=== PATIENT | female | born 1950 | race Hispanic/Latino ===

== ENCOUNTER 2024-02-08 11:16 | Emergency (ER) | payer OTHER, SELFPAY ==
--- NOTE | 2024-02-08 11:45 | ED.GENMED ---
ED Provider Triage
<Frank King PA-C - Last Filed: 02/08/24 11:47>
-
Patient seen by provider in Triage?: Seen in Triage
73 yo female presents due to intractable N/V x 3 days. Increasing fatigue. No fevers. Denies abd pain or diarrhea. No ill contacts. No prior abd surgeries.
VSS, afebrile. Looks well, non toxic. AOx 3
Check CBC, CMP, lipase
History of Present Illness
<Frank King PA-C - Last Filed: 02/08/24 11:47>
General
Chief Complaint: Abdominal Symptoms
Time Seen by Provider: 02/08/24 14:45
<Shanna Goldberg PA-C - Last Filed: 02/08/24 22:30>
General
Source: patient
Exam Limitations: none
Nursing documentation reviewed up to this point in time: agreed with
History of Present Illness
History of Present Illness:
pt is a 73 y/o F with h/o HTN
started vomiting on 02/04 and has had episodes of nausea/vomiting with oral intake since; she thinks she has vomited 6 or 7 times
she feels some pain in her LLQ
nausea occurs with trying to drink something
she has a headache
no fever, abdominal swelling/distension, vomiting blood, diarrhea, consptiaiotn
her vomit is now yellow
she does not drink alcohol
no previous abdominal surgeries
no other sick contacts
Past History
<Shanna Goldberg PA-C - Last Filed: 02/08/24 22:30>
Past History
ED Past Medical History: HTN
ED Past Surgical History: None
Social History
Tobacco: Non-smoker
Alcohol: None
Drug: None
Personal:
Living: with family
Review of Systems
<Shanna Goldberg PA-C - Last Filed: 02/08/24 22:30>
Review of Systems
Allergies reviewed?: Yes
All Other Systems: Not applicable
Phy Exam
<Shanna Goldberg PA-C - Last Filed: 02/08/24 22:30>
Physical Exam
Physical Exam:
GENERAL: Alert , in no apparent distress
EYE: pupils equal and reactive
NECK: Supple
ENT: o/p clr, mmm.
CARDIAC: Regular rate and rhythm .
LUNGS: Clear breath sounds bilaterally, no acute respiratory distress, no wheezes/rales/rhonchi
ABDOMEN: Soft, LLQ tenderness, no r/g, no cvat, normal bowel sounds
NEUROLOGICAL: Alert and oriented, no focal neuro deficits
SKIN: Warm and dry, skin intact.
MUSCULOSKELETAL: No edema, well perfused. neg nida's sign
PSYCH: Normal and appropriate interaction.
Course
<Frank King PA-C - Last Filed: 02/08/24 11:47>
Orders/Labs/Results
Orders:
Orders
02/08/24 11:58
Complete Blood Count/With Diff Urgent
Comprehensive Metabolic Panel Urgent
Lipase Urgent
02/08/24 15:13
0.9% Sodium Chloride 1000 ml [Nss] 1,000 ml IV BOLUS
Diphenhydramine [Benadryl] 25 mg IV NOW STA
Metoclopramide [Reglan] 10 mg IV NOW STA
Abnormal Lab Results
02/08/24
11:58
MCH 33.2 H pg
(27.0-31.0)
BUN 19 H mg/dl
(7-17)
Glucose 136 H mg/dl
(70-99)
02/08/24 11:58
02/08/24 11:58
Vital Signs
Initial and Last Documented VS:
Initial Vital Signs
Temp Pulse Resp BP Pulse Ox
36.8 C 69 20 162/79 98
02/08/24 11:46 02/08/24 11:46 02/08/24 11:46 02/08/24 11:46 02/08/24 11:46
Last Documented Vital Signs
Temp Pulse Resp BP Pulse Ox
36.7 C 61 18 124/50 98
02/08/24 13:18 02/08/24 16:44 02/08/24 16:44 02/08/24 16:44 02/08/24 16:44
<Shanna Goldberg PA-C - Last Filed: 02/08/24 22:30>
Orders/Labs/Results
Orders:
Orders
02/08/24 11:58
Complete Blood Count/With Diff Urgent
Comprehensive Metabolic Panel Urgent
Lipase Urgent
02/08/24 15:13
0.9% Sodium Chloride 1000 ml [Nss] 1,000 ml IV BOLUS
Diphenhydramine [Benadryl] 25 mg IV NOW STA
Metoclopramide [Reglan] 10 mg IV NOW STA
Abnormal Lab Results
02/08/24
11:58
MCH 33.2 H pg
(27.0-31.0)
BUN 19 H mg/dl
(7-17)
Glucose 136 H mg/dl
(70-99)
02/08/24 11:58
02/08/24 11:58
Vital Signs
Initial and Last Documented VS:
Initial Vital Signs
Temp Pulse Resp BP Pulse Ox
36.8 C 69 20 162/79 98
02/08/24 11:46 02/08/24 11:46 02/08/24 11:46 02/08/24 11:46 02/08/24 11:46
Last Documented Vital Signs
Temp Pulse Resp BP Pulse Ox
36.7 C 61 18 124/50 98
02/08/24 13:18 02/08/24 16:44 02/08/24 16:44 02/08/24 16:44 02/08/24 16:44
<Shanna Goldberg PA-C - Last Filed: 02/08/24 22:30>
MDM/Problems Addressed
Differential Diagnosis Includes:
gastritis, enteritis, viral syndrome, obstruction, choleltihaisis
MDM/Problems Addressed:
73 y/o F
3 days of nauesa/vomiting
some bilious emesis
minimal pain lower abd
no fever/chills/cp/sob
she has a headache
did keep some liquids down this morning
no previous surgeries
one xam nontoixc appearing
no distress
abdomen mimial tenderness
labs reviewed, unremarkable
ct scan offered due to length of symptoms and age but pt was medicated with reglan/benadryl and ivf and she feels much better
toelrated some po liquids prior to arrival and also here
d/c home
she declinees the cat scan
<Shanna Goldberg PA-C - Last Filed: 02/08/24 22:30>
*Critical Care Note
Total Time (30-74mins, 75-104mins- exclusive of procedures): Not Applicable
ED Attending Note
<Frank King PA-C - Last Filed: 02/08/24 11:47>
-
Portions of this chart may have been created with voice recognition software.� Occasional wrong word or��sound alike� substitutions may have occurred due to the inherent limitations of voice recognition software.
Discharge Plan
Departure
Patient Disposition: Home (Routine Discharge)
Date of Disposition: 02/08/24
Time of Disposition: 16:38
Patient with high blood pressure during this ER visit?: No
Condition: Fair
Covid-19: Not Applicable
Discharge Problem:
Vomiting
Instructions: Nausea and Vomiting, Adult (DC)
Referrals:
Kourtney Austin MD [Family Provider] - Follow up in 2-3 days
Activity Restrictions/Additional Instructions:
Your blood work was normal. You got better with IV fluids and nausea medication. You were offered CAT scan but you declined. If your symptoms return or you get more pain you should return to the ER. Otherwise follow-up with your doctor. [place]
diet as tolerated today, increase over the next couple of days
Interventions
Interventions:
*Risk Screen - Suicide Last Done: 02/08/24 16:02
*General Assessment Last Done: 02/08/24 11:46
*Neglect/Abuse Screening Last Done: 02/08/24 16:02
ED- Fall Risk Assessment Last Done: 02/08/24 16:55
*ED COVID-19 Vaccine History Last Done: 02/08/24 16:02
*Nursing Disposition Last Done: 02/08/24 16:55
AG-[facility] Assessment Last Done: 02/08/24 16:02
Discharge Date and Time
Discharge Date/Time: 02/08/24 16:55
Print Language: ETHIOPIAN
[2024-02-08 11:46] VITALS: BP 162/79
[2024-02-08 12:15] LABS: % Basophils 0.9 % (0-2); % Eosinophils 0.5 % (0-6); % Immature Granulocytes 0.2 % (0-0.5); % Lymphocytes 31.7 % (20.5-51.1); % Monocytes 7.2 % (1.7-9.3); % Neutrophils 59.5 % (42.2-75.2); Absolute Basophils 0.1 10^3/uL (0-0.2); Absolute Lymphocytes 2.1 10^3/uL (1.2-3.4); Absolute Monocytes 0.5 10^3/uL (0.1-0.6); Hemoglobin 14.5 g/dL (12.0-16.0); Mean Corp Hgb Conc. 34.5 g/dL (33.0-37.0); Mean Corpuscular Hgb 33.2 pg (27.0-31.0); Mean Corpuscular Volume 96.1 fL (81.0-99.0); Nucleated Red Blood Cells % 0 %; Platelet Count 226 10^3/uL (130-400); Red Blood Cell Count 4.37 10^6/uL (4.20-5.40); Red Cell Dist. Width 12.6 % (11.5-14.5); White Blood Cell Count 6.7 10^3/uL (4.8-10.8)
[2024-02-08 12:32] LABS: ALT (SGPT) 30 U/L (0-35); AST (SGOT) 33 U/L (14-36); Albumin 4.8 g/dl (3.5-5.0); Alkaline Phosphatase 65 U/L (38-126); Blood Urea Nitrogen 19 mg/dl (7-17); Calcium 9.4 mg/dl (8.4-10.2); Carbon Dioxide 22 mmol/L (22-30); Chloride 100 mmol/L (98-107); Glucose 136 mg/dl (70-99); Lipase 98 U/L (23-300); Potassium 4.1 mmol/L (3.5-5.1); Sodium 135 mmol/L (135-145); Total Bilirubin 0.6 mg/dl (0.2-1.3); eGFR > 60.00
[2024-02-08 13:18] VITALS: BP 153/76
[2024-02-08] MEDS: NSS 1000 IV (15:45)
[2024-02-08] MEDS: BENADRYL 25 MG IV (15:46)
[2024-02-08] MEDS: REGLAN 10 MG IV (15:46)
[2024-02-08 16:44] VITALS: BP 124/50
== END 2024-02-08 16:55 | disposition home or self-care (01) ==
LOC: EMR 11:16
PROVIDERS: Physician Assistant; EMERGENCY PHYSICIAN Emergency Medicine; FAMILY PHYSICIAN Family Medicine
DX: R11.2 Nausea with vomiting, unspecified (principal); R10.32 Left lower quadrant pain; I10 Essential (primary) hypertension
CPT/HCPCS: 96374; 96375; 99284; 80053; 83690; 85025

== ENCOUNTER → 2024-02-13 18:45 | Outpatient (REF) | payer OTHER, SELFPAY | LOC: WDC 18:45 | PROVIDERS: ATTENDING PHYSICIAN Family Medicine | DX: Z12.31 Encounter for screening mammogram for malignant neoplasm of breast (principal) | CPT/HCPCS: 77063; 77067 ==